=== PATIENT | female | born 1985 | race Two or more races ===

== ENCOUNTER 2019-07-17 18:08 | Emergency (ER) | payer MEDICAID ==
[~2019-07-17] VITALS: Ht 157.5 cm; Wt 61.7 kg
[2019-07-17 18:24] VITALS: BP 103/52
[2019-07-17] MEDS ORDERED: ACETAMINOPHEN 325 MG TAB PO ONE (18:30)
== END 2019-07-17 21:40 | disposition left against medical advice (07) ==
LOC: ER 18:17
DX: J02.9 Acute pharyngitis, unspecified (principal); Z53.21 Procedure and treatment not carried out due to patient leaving prior to being seen by health care provider